=== PATIENT | female | born 1950 | race Caucasian/White ===

== ENCOUNTER 2017-07-05 09:00 | Outpatient (RCR) | payer MEDICARE, BC | END 2017-07-21 18:21 | disposition home or self-care (01) | LOC: PT 09:00 | DX: S76.319D Strain of muscle, fascia and tendon of the posterior muscle group at thigh level, unspecified thigh, subsequent encounter (principal); X58.XXXD Exposure to other specified factors, subsequent encounter | CPT/HCPCS: G8978-GP; G8979-GP ==

== ENCOUNTER 2023-08-31 10:00 | Outpatient (RCR) | payer MEDICARE, BC | END 2023-09-22 | LOC: PT | DX: M17.0 Bilateral primary osteoarthritis of knee (principal); Z96.652 Presence of left artificial knee joint ==

== ENCOUNTER 2023-09-23 08:00 | Outpatient (RCR) | payer MEDICARE, BC | END 2023-10-23 | disposition home or self-care (01) | LOC: PT | DX: M17.0 Bilateral primary osteoarthritis of knee (principal); Z96.652 Presence of left artificial knee joint ==

== ENCOUNTER 2023-10-28 08:00 | Outpatient (RCR) | payer MEDICARE, BC | END 2023-11-23 | disposition still patient (30) | LOC: PT | DX: M17.0 Bilateral primary osteoarthritis of knee (principal); Z96.651 Presence of right artificial knee joint ==

== ENCOUNTER 2023-11-25 15:44 | Outpatient (RCR) | payer MEDICARE, BC | END 2023-12-22 | disposition home or self-care (01) | LOC: PT | DX: M17.0 Bilateral primary osteoarthritis of knee (principal); Z96.651 Presence of right artificial knee joint ==